=== PATIENT | female | born 1965 | race Caucasian/White ===

== ENCOUNTER 2022-02-16 08:52 | Day surgery (SDC) | payer MEDICAID ==
[~2022-02-16] VITALS: Ht 154.9 cm; Wt 65.8 kg
[2022-02-16] MEDS ORDERED: fentaNYL citrate 0.05 MG/ML VIAL ONE (11:45)
[2022-02-16] MEDS ORDERED: MIDAZOLAM 5 MG/5 ML VIAL ONE (11:45)
== END 2022-02-16 12:40 | disposition home or self-care (01) ==
LOC: MMU 08:52 → MOR 08:52
PROVIDERS: ATTEND Internal Medicine Gastroenterology
DX: Z12.11 Encounter for screening for malignant neoplasm of colon (principal); K57.30 Diverticulosis of large intestine without perforation or abscess without bleeding; E78.5 Hyperlipidemia, unspecified; Z20.822 Contact with and (suspected) exposure to COVID-19; Z79.899 Other long term (current) drug therapy
CPT/HCPCS: 45378; 87426; J3010; J2250